=== PATIENT | female | born 1965 ===

== ENCOUNTER 2022-04-19 09:07 | Outpatient (REF) | payer BC, SELFPAY ==
[2022-04-19 14:40] LABS: HCT 41.9 % (36.0-46.0); HGB 13.7 g/dL (11.2-15.7); MCHC 32.7 % (32.0-36.0); MCV 89 fL (80-95); MPV 9.3 fL (8.0-11.0); Platelet Count 200 10^3/uL (130-400); RBC 4.72 10^6/uL (3.93-5.22); RDW 13.1 % (11.7-14.6); RDW-SD 42.7 fL; WBC 3.15 10^3/uL (4.4-10.8)
[2022-04-19 15:10] LABS: Anion Gap 9.1 mmol/L (3-11); BUN 20 mg/dL (7-18); CO2 26.9 mmol/L (21.0-32.0); CREATININE 0.8 mg/dL (0.55-1.02); Calcium 9.2 mg/dL (8.5-10.1); Calculated LDL 146 mg/dL (<100); Chloride 108 mmol/L (98-107); Cholesterol 240 mg/dL (<200); Estimated GFR 86.96 (mL/min/1.73m2); Glucose 92 mg/dL (74-106); HDL Cholesterol 84 mg/dL (40-60); Potassium 5.2 mmol/L (3.5-5.1); Sodium 144 mmol/L (136-145); Triglyceride 51 mg/dL (<150)
== END 2022-04-19 09:08 | disposition home or self-care (01) ==
LOC: NCHCN 09:07
PROVIDERS: PCP Orthopaedic Surgery; Visit Provider Family Medicine
DX: Z00.00 Encounter for general adult medical examination without abnormal findings (principal); Z13.228 Encounter for screening for other metabolic disorders; Z13.0 Encounter for screening for diseases of the blood and blood-forming organs and certain disorders involving the immune mechanism; Z13.220 Encounter for screening for lipoid disorders
CPT/HCPCS: 80048; 80061; 85027

== ENCOUNTER 2022-04-19 11:56 | Outpatient (CLI) | payer BC, SELFPAY ==
--- NOTE | 2022-04-19 09:30 | DI.RAD_ITS ---
Exam(s) XR SHOULDER LT COMPLETE 2+V EXAM: XR SHOULDER LT COMPLETE 2+V CLINICAL HISTORY: PARESTHESIA OF ARM, R20.2. TECHNIQUE: 2D digital imaging was performed. Three views. COMPARISON: No exams were available for comparison FINDINGS: BONES: No acute fracture is present. No bony destructive lesion is seen. JOINTS: No dislocation present. Mild degenerative changes at the glenoid. No significant AC joint s purring. SOFT TISSUE: Normal. IMPRESSION: Mild degenerative changes of the glenohumeral joint. DATA REPOSITORY: RADIATION DOSE DELIVERED:
== END 2022-04-19 12:16 ==
LOC: DI 11:57
PROVIDERS: PCP Orthopaedic Surgery; Visit Provider Family Medicine
DX: M25.512 Pain in left shoulder (principal); R20.2 Paresthesia of skin; M25.812 Other specified joint disorders, left shoulder
CPT/HCPCS: 73030

== ENCOUNTER 2022-06-27 08:40 | Outpatient (CLI) | payer BC, SELFPAY ==
--- NOTE | 2022-06-27 08:27 | DI.RAD_ITS ---
Exam(s) XR KNEE RT 4V AP,LAT,ELIZABETH,PAT EXAM: XR KNEE RT 4V AP,LAT,ELIZABETH,PAT CLINICAL HISTORY: bilateral knee pain. TECHNIQUE: 2D digital imaging was performed of the right knee. Four views obtained. Merchant, AP, la teral and PA tunnel views were obtained. COMPARISON: No priors for comparison FINDINGS: BONES: No acute fracture is present. No bony destructive lesion is seen. JOINTS: Periarticular spurring is seen at the lateral femoral tibial joint. There is also narrowing of the lateral femoral tibial joint. The articular surfaces are otherwise well maintained. There is a small joint effusion. SOFT TISSUE: Normal. IMPRESSION: Degenerative changes of the knee. DATA REPOSITORY: RADIATION DOSE DELIVERED:
--- NOTE | 2022-06-27 08:27 | DI.RAD_ITS ---
Exam(s) XR KNEE LT 4V AP,LAT,ELIZABETH,PAT EXAM: XR KNEE LT 4V AP,LAT,ELIZABTEH,PAT CLINICAL HISTORY: Bilateral knee pain. TECHNIQUE: 2D digital imaging was performed of the left knee. Four images were obtained. Merchant, AP, lateral and PA tunnel views were obtained. COMPARISON: No exams were available for comparison FINDINGS: BONES: No acute fracture is present. There is deformity of the lateral tibia which appears represent old tibial plateau fracture. Medullary calcifications are seen in the distal metaphysis of the left femur. The cortex appears intact the adjacent soft tissues are unremarkable. No periosteal reactio n is seen. JOINTS: The knee is normally aligned. There is a small joint effusion. No significant degenerative c hanges are present. SOFT TISSUE: Normal. IMPRESSION: 1. Findings suggestive of an old fracture deformity involving the lateral tibial plateau. No acute a bnormality. 2. Small joint effusion. 3. Calcifications in the distal femur. This may represent a benign lesion such as an enchondroma or infarct. No cortical destruction or periosteal reaction is seen. An MRI may be considered for furth er evaluation. DATA REPOSITORY: RADIATION DOSE DELIVERED:
== END 2022-06-27 08:41 | disposition home or self-care (01) ==
LOC: DIORS 08:40
PROVIDERS: PCP Family Medicine; Referring Provider Family Medicine; Visit Provider Student in an Organized Health Care Education/Training Program
DX: M17.0 Bilateral primary osteoarthritis of knee (principal); M25.462 Effusion, left knee; Z87.81 Personal history of (healed) traumatic fracture
CPT/HCPCS: 73564